=== PATIENT | male | born 1965 | race Caucasian/White ===

== ENCOUNTER 2017-06-15 13:22 | Emergency (ER) | payer OTHER ==
[~2017-06-15] VITALS: Ht 180.3 cm; Wt 100.0 kg
[~2017-06-15 13:22] MED LIST: NOMED
[2017-06-15 13:26] VITALS: BP 132/80; PULSE 85; RESP 16; O2SAT 99
--- NOTE | 2017-06-15 15:47 | ED.REPORT ---
HPI-Dizziness / Weakness Date of Service Jun 15, 2017 ED Provider: Bradley Bravo PA-C Nursing Notes Stated Complaint: DIZZINESS Chief Complaint: General Complaint Allergies: Coded Allergies: No Known Allergies (Verified Allergy, Unknown, 06/15/17) Miscellaneous Medications No Historical Medication (No Historical Medication) Ea Location: : No pain Associated with: Reports: Balance problem, Headache, Nausea, Speech problem, Tinnitus, Vertigo, Visual disturbance, Vomiting, Denies: Chest pain, Chills, Fever, Palpitations, Weakness Pertinent Negative: Pt denies other symptoms Physical Exam Initial Vital Signs Vital Signs (First) Date Time Temp Pulse Resp B/P Pulse Ox O2 Delivery O2 Flow Rate FiO2 06/15/17 13:26 36.6 85 16 132/80 99 Room Air Obdulia Montano DO Jun 15, 2017 15:47
--- NOTE | 2017-06-15 16:02 | DRSVH ---
PROCEDURE: CT BRAIN WITHOUT CONTRAST ([id number]) INDICATIONS: 52 year-old man with vertigo. TECHNIQUE: Noncontrast 4.5 mm thick angled axial sections acquired from the foramen magnum to the vertex, with c oronal reformats. COMPARISON: None. FINDINGS: Image quality: Excellent. CSF spaces: Basal cisterns are patent. No extra-axial fluid collections. Ventricles are normal in size and shape. Brain: There is crowding of the inferior posterior fossa and foraminal magnum with inferior displace ment of cerebellar tonsils. No midline shift. No intracranial masses or hemorrhage. De Jesus-white tano er interface is normal. Skull and face: Calvarium and visualized facial bones are intact, without suspicious lesions. Sinuses: Visualized sinuses and mastoids are clear. IMPRESSION: 1. No acute intracranial abnormalities. 2. Crowding of the inferior posterior fossa and foraminal magnum with inferior displacement of cerebe llar tonsils, suggesting Chiari I malformation. If clinical symptoms persist, MRI is suggested for f urther evaluation. Dictated by: Ivette Humphreys M.D. on 06/15/2017 at 15:56 Approved by: Ivette Humphreys M.D. on 06/15/2017 at 16:00
--- NOTE | 2017-06-15 16:41 | ED.REPORT ---
HPI-Dizziness / Weakness Date of Service Jun 15, 2017 ED Provider: Bradley Bravo PA-C Shara is an otherwise healthy 52-year-old male who presents to emergency department with chief complaint of dizziness. Patient reports symptoms began approximate 6 days ago when he got out of bed. He reports he has had difficulty walking and was stumbling around his bedroom. He describes his dizziness as a sensation of the room spinning around him. His dizziness is constant. It improves somewhat when he lies still and is worsened over the course of the day as he becomes more tired. It does not appear to be related to motion of the head. His reports an episode 2 days ago in which the patient's speech was slurred for a brief period. Patient reports that he has been functional in his daily life and has been going to work but the symptoms have become intolerable. Denies other symptoms including headache, vision changes, ear pain, upper respiratory symptoms, chest pain, palpitations, shortness of breath, loss of consciousness, unilateral weakness, fever, chills. Denies history of stroke, hypertension, diabetes. He has not had his lipids checked. He admits to smoking. 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 (0) Horizontal EO Movements: None (0) Visual Cummings: No visual loss (0) Facial Palsy: Normal symmetry (0) Right Arm Motor Drift (10s): No drift 10 sec (0) Left Arm Motor Drift (10s): No drift 10 sec (0) Right Leg Motor Drift (5s): No drift 5 sec (0) Left Leg Motor Drift (5s): No drift 5 sec (0) Limb Ataxia FNF/Heel-Watkins: No ataxia (0) Sensation (Arms/Legs/Face): No sensory loss (0) Language Aphasia: No aphasia, normal (0) Dysarthria: No dysarthria, normal (0) Extinction/Inattention: No exctinct/inattent (0) NIHSS Score: 0 Time NIHSS Performed: 16:02 Date NIHSS Performed: Jun 15, 2017 Past Medical History Past Medical History Ear infections Review of Systems Review of Systems Note: Negative unless stated otherwise in history of present illness Physical Exam General: Well appearing, well developed, well nourished, no acute distress. Head: Atraumatic, normocephalic. No mastoid tenderness. Eyes: No scleral icterus or injection. No discharge. PERRL. Vision grossly intact. Ears: Pinna and tragus nontender with manipulation. External auditory canal patent, atraumatic and without discharge. Tympanic membranes are significantly sclerotic, without bulging or retraction. Hearing grossly intact. Nose: Symmetrical, nares patent without discharge. No frontal or maxillary sinus tenderness. Mouth/pharynx: normal dentition, mucus membranes moist. Tonsils 2+ and symmetrical, uvula midline. Pharynx noninjected, no cobblestoning or discharge. Voice clear. Neck: No tenderness or lymphadenopathy. Trachea midline. Respiratory: Regular rate and rhythm. Breath sounds present, clear to auscultation and equal bilaterally. No respiratory distress. No increased work of breathing, speaks in complete sentences. Cardiovascular: Regular rate and rhythm, without murmur, gallop or rub. No pedal edema. Skin: Warm and dry. Neurological:Normal heel-watkins, finger-nose, rapid hand. Negative pronator drift. HINTS exam: Normal head impulse test with no corrective saccade, negative nystagmus, normal test of skew Cranial nerves: Vision grossly intact, PERRL, EOMI. Facial motion symmetrical, sensation to light touch over forehead, maxilla and mandible present and equal B /L. Voice clear and fluent, no drooling/pooling of saliva, uvula rises midline. Psychological: Alert and oriented. Speech appropriate, linear and logical. Behavior appropriate. Initial Vital Signs Vital Signs (First) Date Time Temp Pulse Resp B/P Pulse Ox O2 Delivery O2 Flow Rate FiO2 06/15/17 13:26 36.6 85 16 132/80 99 Room Air Slightly elevated blood pressure Interpretation & Diagnostics Interpretation & Diagnostics: PROCEDURE: MRI BRAIN WITHOUT CONTRAST ([id number]) INDICATIONS: vertigo IMPRESSION: 1. No acute intracranial process. 2. Minimal hyperintense foci within the periventricular and subcortical white matter, suspicious for early changes of chronic microvascular ischemia. Other etiologies such as demyelinating disease, vasculitis or potentially migraine sequela cannot be excluded. ECG Interpretation ECG Interpretation: Sinus rhythm with a rate of 80, regular. Prolonged QT intervals. Negative ischemic changes Interpreted by: ED physician (Dr. Bermudez) CT Head Interpretation PROCEDURE: CT BRAIN WITHOUT CONTRAST ([id number]) INDICATIONS: 52 year-old man with vertigo. IMPRESSION: 1. No acute intracranial abnormalities. 2. Crowding of the inferior posterior fossa and foraminal magnum with inferior displacement of cerebellar tonsils, suggesting Chiari I malformation. If clinical symptoms persist, MRI is suggested for further evaluation. Re-Eval/Medical Decision Med Decision/Clinical Course 52-year-old male with a history of recurrent ear infections since emergency Department with a chief complaint of dizziness. Patient describes vertiginous dizziness that was first noticed when he got out of bed 6 days ago. He reports the dizziness is constant, but improves somewhat when reclining and worsened somewhat over the course of the day, as he becomes more tired. It does not appear to be related to head motion. Additionally his describes an episode 2 days ago which the patient briefly had slurred speech. Physical examination is normal, with an NIH stroke scale of 0. Nystagmus is not reproducible, head impulse test is normal, and a negative test of skew. The patient's gait is normal. Vital signs are normal. I discussed the case with , who recommends a noncontrast CT brain. This returns negative for ischemic changes but suggestive of Chiari malformation. Dr. Ely met with and examine the patient, recommends noncontrast MR brain. Noncontrast MR is negative for acute changes however is suspicious for chronic microvascular ischemia, but cannot rule out demyelinating disorder, vasculitis. I discussed these findings with Dr. Ely,. Who recommends discharge with neurology follow-up. Patient declined prescriptions for meclizine, Valium or Zofran. Neurology follow -up referral was provided as well as a primary care follow-up referral. Provide emergent return precautions. Patient verbalizes understanding of and consent to the plan. Patient Discharge & Departure Impression: Primary Impression: Vertigo Disposition: Home Discharge Condition All VS Reviewed: Yes Condition: Stable Patient Instructions: Vertigo (ED) Additional Instructions: Evaluation for dizziness in the emergency department includes interview, physical examination, CT and MRIs of the brain. These are reassuring that this is unlikely caused by an immediately dangerous conditions such as stroke or tumor. I believe you're stable and safe to go home. There were findings on the MRI however that should be reviewed with a neurologist. I will provide you with a referral. I will also provide you with a referral to a primary care provider. Return to the emergency department for any new or worsening symptoms including sudden or severe headache, weakness/numbness in the limb, difficulty speaking, changes in vision, fever. Referrals: Ebony He Peter J MD EDSupervising Provider for APC: Saul Ely DO Attending Statement I saw and evaluated this pt with Bradley Bravo and agree with the documentation above Ebony He; Eligio Kenyon MD, Seth PA-C Jun 15, 2017 16:41 Saul Ely DO Jun 18, 2017 21:11
[2017-06-15 18:47] VITALS: BP 119/75; PULSE 69; RESP 18; O2SAT 99
--- NOTE | 2017-06-15 19:30 | DRSVH ---
PROCEDURE: MRI BRAIN WITHOUT CONTRAST ([id number]) INDICATIONS: vertigo TECHNIQUE: Noncontrast axial T1 spin echo, axial T2 fast spin echo, sagittal and axial FLAIR, coronal T2 fast sp in echo, axial gradient echo, axial diffusion and ADC through the brain. COMPARISON: [facility], CT, CT BRAIN WO CON, 06/15/2017, 15:50. FINDINGS: Image quality: Excellent. CSF Spaces: Basal cisterns are patent. No extra-axial fluid collections. Ventricles are normal in size and shape. Brain: No intracranial masses or hemorrhage. De Jesus/white matter interface is normal. Brainstem appe ars normal. Diffusion-weighted images demonstrate no acute ischemic insult. No chronic ischemic ins ults. Normal intravascular flow voids are present. Minimal hyperintense foci within the subcortical and periventricular white matter. Skull and face: Calvarium has normal marrow signal. Orbits appear normal. Sinuses: Sinuses demonstrate mild scattered mucosal thickening. There is minimal bilateral mastoid a ir cell fluid. IMPRESSION: 1. No acute intracranial process. 2. Minimal hyperintense foci within the periventricular and subcortical white matter, suspicious for early changes of chronic microvascular ischemia. Other etiologies such as demyelinating disease, vasc ulitis or potentially migraine sequela cannot be excluded. Dictated by: Mary Zhu M.D. on 06/15/2017 at 19:25 Approved by: Mary Zhu M.D. on 06/15/2017 at 19:27
== END 2017-06-15 20:06 | disposition home or self-care (01) ==
LOC: SED 13:22
DX: R42 Dizziness and giddiness (principal)